=== PATIENT | male | born 2000 | race Caucasian/White ===

== ENCOUNTER 2022-07-15 18:16 | Emergency (ER) | payer BC, SELFPAY ==
[2022-07-15 18:21] VITALS: BP 130/77; RESP 18; TEMP 36.8; O2SAT 99; BMI 23.1
--- NOTE | 2022-07-15 19:02 | ED_ITS ---
HPI - Male Genitourinary General Chief complaint: Urogenital Problems, Male Stated complaint: Feeling achy and cid when urinating Time Seen by Provider: 07/15/22 18:30 History of Present Illness HPI Narrative: This 22-year-old male comes in reporting symptoms of dysuria for the past 2-3 days. This includes pain when passing urine, increased frequency, sense of incomplete voiding, and some abdominal pain. He does not report any fevers. Prior to this he has been in good health. Related Data Previous Rx's Medication Instructions Recorded cephalexin 500 mg capsule 500 mg PO TID 10 days #30 caps 07/15/22 Allergies Allergy/AdvReac Type Severity Reaction Status Date / Time No Known Drug Allergies Allergy Verified 07/15/22 18:23 Review of Systems Status of ROS: Reports: 10 or more systems reviewed and unremarkable except as noted in History and below Narrative: Constitutional: No fevers, no weight gain or loss. Eyes: No discharge. No vision changes. HENT: No congestion, no sore throat, no ear pain. Cardiovascular: No chest pain, no palpitations. Respiratory: No shortness of breath, no wheezes, no cough. Gastrointestinal: No abdominal pain, no vomiting, no diarrhea. Genitourinary: Dysuria symptoms without sign of gross hematuria. Musculoskeletal: Normal range of motion. Skin: No rashes, no pruritis. Neurological: No dizziness, weakness, sensory change, speech change. Endo/Heme/Allergies: No bruising or bleeding. No polydipsia. Pysch: no suicidality, no anxiety, no insomnia. All other systems reviewed and are negative. PFSH PFS Social History Smoking Status: Never smoker How often do you have a drink containing alcohol: monthly or less AUDIT-C Alcohol total score: 1 Non-prescribed substance use: denies use Exam Narrative: Exam Narrative: Constitutional: Well-developed, well-nourished, no acute distress. HEENT: Normocephalic, atraumatic. Neck: Normal range of motion. Nontender. Supple. Heart: Intact distal pulses. Lungs: No chest discomfort. No wheezes, rhonchi, or rales. Abdomen: Diffuse tenderness in the lower abdomen. Back: Normal range of motion. Extremities: Normal range of motion. No injury. Skin: Intact. No rash. Warm. No erythema or pallor. Neurologic: No altered sensation. No weakness. Alert and oriented. Psychiatric: No suicidality. No anxiety or depression. No insomnia. Nursing notes and vitals signs are reviewed. Const: Vital Signs, click to edit/add: Vital Signs - 24 hr 07/15/22 18:21 Temperature 98.3 F Respiratory Rate 18 Blood Pressure [Ri ght Upper Arm] 130/77 Pulse Oximetry 99 Oxygen Delivery Me thod Room Air Course Vital Signs Vital signs: Initial Vital Signs Temperature 98.3 F 07/15/22 18:21 Temperature Source Temporal Artery Scan 07/15/22 18:21 Respiratory Rate 18 07/15/22 18:21 Blood Pressure 130/77 07/15/22 18:21 Blood Pressure Mean 94 07/15/22 18:21 Blood Pressure Position Sitting 07/15/22 18:21 Pulse Oximetry 99 07/15/22 18:21 Oxygen Delivery Method 07/15/22 18:21 Vital Signs Temperature 98.3 F 07/15/22 18:21 Respiratory Rate 18 07/15/22 18:21 Blood Pressure 130/77 07/15/22 18:21 Pulse Oximetry 99 07/15/22 18:21 Oxygen Delivery Method 07/15/22 18:21 Temperature 98.3 F 07/15/22 18:21 Respiratory Rate 18 07/15/22 18:21 Blood Pressure 130/77 07/15/22 18:21 Pulse Oximetry 99 07/15/22 18:21 Oxygen Delivery Method 07/15/22 18:21 MDM - Male Genitourinary MDM Narrative Medical decision making narrative: This patient comes in with symptoms of dysuria for the past 2 or 3 days. Urinalysis does show evidence of urinary tract infection. The patient is not having any fevers or low blood pressure suggesting a more troublesome infection. He received a prescription for Keflex and is okay to return home. I describe signs and symptoms where he should return if worsening. Lab Data Attestation: I reviewed the patient's lab results. Labs: Lab Results 07/15/22 Range/Units 18:55 Urine Color Yellow (Yellow) Urine Appearance Clear (Clear) Urine pH 7.0 (5.0-8.5) Ur Specific [place] >= 1.030 (1.000-1.030) Urine Protein Negative (Negative) Urine Glucose (UA) Negative (Negative) Urine Ketones Negative (Negative) Urine Blood Trace-intact A (Negative) Urine Nitrite Negative (Negative) Urine Bilirubin Negative (Negative) Urine Urobilinogen 1.0 (0.2-1.0) Ur Leukocyte Esterase 1+ A (Negative) Urine RBC 10-25 A (0-2) Urine WBC 10-25 A (0-5) Ur Squamous Epith Cells None (None-Few) Urine Bacteria None (None) Discharge Plan Discharge Clinical Impression: Urinary tract infection Patient Disposition: Home, Self-Care Condition: Unchanged Instructions: Urinary Tract Infection in Men (ED) Additional Instructions: Take medication as directed. Drink plenty of fluids. Follow up with MD or return if worsening. Prescriptions: New cephalexin 500 mg capsule 500 mg PO TID 10 Days Qty: 30 0RF Follow Up/Referrals: Provider,Not a Local [Primary Care Provider] - Stand Alone Forms: [email or web address] Info Instructions
[2022-07-15 19:10] LABS: Appearance Urine Clear (Clear); Bilirubin Urine Negative (Negative); Blood Urine Trace-intact (Negative); Color Urine Yellow (Yellow); Glucose Urine Negative (Negative); Ketones Urine Negative (Negative); Leukocyte Esterase Urine 1+ (Negative); Nitrite Urine Negative (Negative); Protein Urine Negative (Negative); Specific Gravity Urine >= 1.030 (1.000-1.030)
== END 2022-07-15 19:40 | disposition home or self-care (01) ==
PROVIDERS: Emergency Provider Emergency Medicine Emergency Medical Services
DX: N39.0 Urinary tract infection, site not specified (principal)
CPT/HCPCS: 81001; 87086; 87186; 99283; 99284